=== PATIENT | male | born 1965 | race Caucasian/White ===

== ENCOUNTER 2021-02-27 12:45 | Emergency (ER) | payer MEDICAID, SELFPAY ==
--- NOTE | ~2021-02-27 | XR_ITS ---
EXAMINATION: XR RIBS, RIGHT CLINICAL INFORMATION: Fall. Right rib pain. COMPARISON: Previous chest x-rays most recent March 2018. TECHNIQUE: 3 views of the right ribs were obtained. FINDINGS: Lungs are clear. No consolidation, pneumothorax, or pleural effusion. The cardiomediastinal silhouette and pulmonary vasculature are normal. Osseous structures are unremarkable. Ribs are intact. No fractures are identified. XR/XR ribs RT min 3V w CXR1V IMPRESSION: Unremarkable examination.
[2021-02-27 13:33] VITALS: BP 162/87; PULSE 80; RESP 16; TEMP 36.3; O2SAT 100; BMI 25.1
[2021-02-27 15:36] VITALS: BP 170/90; PULSE 79; RESP 16; TEMP 36.6; O2SAT 99
[2021-02-27] MEDS: oxyCODONE HCl Immed Release 5 MG TABLET PO (16:21)
--- NOTE | 2021-02-27 17:17 | PC.NURSE ---
RESPIRATORY THERAPIST IN TO SUPPLY/TEACH IS
[2021-02-27 17:50] VITALS: BP 176/94; RESP 16; TEMP 36.6; O2SAT 98
--- NOTE | 2021-02-27 17:53 | PC.NURSE ---
ABRASION ON PATIENT BACK WAS CLEAN WITH SALINE ANTIBIOTIC ORNAMENT AND NON STICK DRESSING APPLIED .
--- NOTE | 2021-02-27 17:57 | ED.FALL ---
HPI - Fall General Chief Complaint: Fall Stated Complaint: fall Time Seen by Provider: 02/27/21 15:56 Source: patient Mode of arrival: ambulatory Limitations: language barrier History of Present Illness HPI Narrative: 55-year-old male who fell on a ramp getting out of wheelchair van after dialysis. Patient has right flank abrasion, and right rib pain. No loss of consciousness, he did not hit his head. Patient has bilateral edwen-lop-pysp amputation with prosthesis, walks with a walker. This was clearly a misstep, a mechanical fall, no loss of consciousness, no lightheadedness, no chest pain, no shortness of breath. MD complaint: fall Onset (ago): hour(s) (1) Fall from: other (Getting onto a ramp out of wheelchair van) Fall witnessed: yes, by bystander Place fall occurred: home Loss of consciousness: none Prolonged down time: no Symptoms prior to fall: none Context: tripped/slipped Location of injury: chest and back Related Data Previous Rx's Medication Instructions Recorded oxycodone 5 mg capsule 5 mg PO Q6H PRN 3 Days #12 cap MDD 02/27/21 20 Allergies Allergy/AdvReac Type Severity Reaction Status Date / Time peas [PEAS] Allergy Unknown UNKNOWN Verified 02/27/21 13:38 Penicillins [PENICILLINS] Allergy Unknown RASH Verified 02/27/21 13:38 Review of Systems Constitutional: Constitutional: Denies body ache(s), Denies chills, Denies fatigue, Denies fever(s), Denies headache(s), Denies malaise and Denies weakness Eyes: Eyes: Denies diplopia ENT: Denies vertigo, Denies dizziness, Denies otalgia, Denies headache(s), Denies mouth pain, Denies post nasal drip, Denies sinus pain, Denies sinus pressure, Denies sore throat and Denies throat swelling Cardiovascular: Cardiovascular: Denies chest pain, Denies syncope, Denies leg edema, Denies lightheadedness, Denies Loss of Consciousness, Denies palpitations and Denies dyspnea Respiratory: Respiratory: Denies chest congestion, Denies cough and Denies dyspnea Gastrointestinal: Gastrointestinal: Reports abdominal pain, Denies hematochezia, Denies constipation, Denies diarrhea and Denies vomiting Musculoskeletal: Comments: Right-sided rib pain Neurologic: Denies confusion, Denies vertigo, Denies dizziness, Denies syncope, Denies headache(s) and Denies weakness Psychiatric: Psychiatric: Denies anxiety, Denies confusion and Denies depression Endocrine: Endocrine: Denies fatigue and Denies palpitations Allergic/Immunologic: Allergic/Immunologic: Denies throat swelling PMFSH Past Medical History Medical History CKD (chronic kidney disease) HTN (hypertension) Social History Social History Advance Directives: No Advance Directives Information Provided: No Physical Exam Vital Signs: Vital Signs: Last Vital Signs Temp 97.8 F 02/27/21 17:50 Pulse 79 02/27/21 15:36 Resp 16 02/27/21 17:50 BP 176/94 H 02/27/21 17:50 Pulse Ox 98 02/27/21 17:50 Body Mass Index 25.1 Const: General: No confusion Nutritional Appearance: well nourished Orientation/consciousness: No confusion Limitations: no limitations HENMT: Head: Yes normal to inspection, Yes normocephalic, Yes atraumatic and No abrasion Eyes: Conjunctivae: conjunctivae normal Pupils: Equal, round and reactive pupils present EOM: EOMs intact bilaterally Neck: Neck: Yes full ROM, Yes no lymphadenopathy and Yes supple Chest: Chest palpation & inspection: no crepitus and tenderness rib right paravertebral line involving the 4th rib, involving the 5th rib, involving the 6th rib and involving the 7th rib Resp: Effort & Inspection: normal respiratory effort and able to speak in complete sentences Auscultation: clear to auscultation bilaterally, no crackles, no rales, no rhonchi and no wheezes Cardio: Rate: regular rate Rhythm: regular rhythm Heart sounds: S1 normal heart sound present and S2 normal heart sound present Skin: Other: Abrasion on right thoracic side of back, linear superficial scratch with surrounding abrasion along right midscapular line of back Neuro: General: No confusion Cranial nerves: Yes Equal, round and reactive pupils present Extrem: General: Yes normal to inspection and Yes full ROM Psych: Appearance: grossly normal Affect: normal affect Attitude: cooperative Thought process: Normal thought process present Course Course Course Narrative: 55-year-old male had a mechanical fall getting out of his wheelchair van after dialysis. Patient denies any other symptoms other than rib pain and scratch on his back. Patient provided with incentive spirometer, wound was cleaned and dressed. Patient given short course of oxycodone for pain, counseled to follow-up with primary care provider. X-ray showed; Lungs are clear. No consolidation, pneumothorax, or pleural effusion. The cardiomediastinal silhouette and pulmonary vasculature are normal. Osseous structures are unremarkable. Ribs are intact. No fractures are identified No rib fracture, likely rib contusion. Counseled patient to follow-up with his primary care provider is Discharge Plan Discharge Clinical Impression: Contusion of rib on right side Qualifiers: Encounter type: initial encounter Qualified Code(s): S20.211A - Contusion of right front wall of thorax, initial encounter Abrasion of back wall of thorax Qualifiers: Encounter type: initial encounter Thoracic wall location detail: right Qualified Code(s): S20.411A - Abrasion of right back wall of thorax, initial encounter Patient Disposition: Home, Self-Care Instructions: Abrasion (ED), Rib Contusion (ED) Additional Instructions: Please fill your prescription for pain medicine tomorrow. Please call your primary care tomorrow for follow-up appointment. Please use your incentive spirometer at least twice every hour for the next week. This will keep your lungs from collapsing and keep you from getting an pneumoonia. Tomorrow afternoon, Please take the dressing off of the wounds on your back, wash with soap and water, pat dry, apply bacitracin, and redress your wounds. Do this for 3 more days. If redness, swelling, or warmth or pain appears, return to be seen, these are signs of infection. Please return emergency room for any new or concerning symptoms. Surta antoine receta de analg?sicos ma?bibi. Llame a antoine atenci?n primaria ma?bibi para danielle lexi de seguimiento. Utilice antoine espir?metro de incentivo al menos dos veces por hora renée la pr?xima semana. [place] evitar? que [place] pulmones colapsen y evitar? que usted contraiga danielle neumoon?a. Ma?bibi por la tarde, qu?tese el vendaje de las heridas de la espalda, l?vese con agua y jab?n, s?quese, aplique bacitracina y repase las heridas. Marcie esto por 3 d?as m?s. Si aparece enrojecimiento, hinchaz?n o calor o dolor, vuelva a ser visto, estos son signos de infecci?n. Regrese a la orlando de emergencias por cualquier s?ntoma nuevo o preocupante. Prescriptions: New oxycodone 5 mg capsule 5 mg PO Q6H MDD 20 PRN (Reason: pain) 3 Days Qty: 12 RF: 0 Interventions: ED Discharge Assessment Last Done: 02/27/21 18:31 Discharge Date/Time: 02/27/21 18:35 Print Language: Anguillan
== END 2021-02-27 18:35 | disposition home or self-care (01) ==
PROVIDERS: Emergency Provider Emergency Medicine; PCP Internal Medicine
DX: S20.211A Contusion of right front wall of thorax, initial encounter (principal); S20.411A Abrasion of right back wall of thorax, initial encounter; W10.2XXA Fall (on)(from) incline, initial encounter; I12.0 Hypertensive chronic kidney disease with stage 5 chronic kidney disease or end stage renal disease; N18.6 End stage renal disease; Z99.2 Dependence on renal dialysis; Y93.89 Activity, other specified; Y92.818 Other transport vehicle as the place of occurrence of the external cause; Y99.8 Other external cause status
CPT/HCPCS: 71101; 99283; 99284

== ENCOUNTER 2021-08-08 13:27 | Outpatient (REF) | payer MEDICAID, SELFPAY ==
[2021-08-08 13:49] LABS: MANUAL DIFF FLAG NO
[2021-08-08 14:10] LABS: Basophils Absolute Auto 0.1 X10*3/uL (0.0-0.2); Basophils Percent Auto 1.5 % (0-2); Eosinophils Absolute Auto 0.3 X10*3/uL (0.0-0.4); Hemoglobin 11.3 g/dl (14.0-18.0); Imm Gran Abs Auto 0.01 X10*3/uL (0.00-0.03); Imm Gran Pct Auto 0.2 % (0.0-0.4); Lymphocytes Absolute Auto 0.9 X10*3/uL (1.2-4.9); Lymphocytes Percent Auto 16.2 % (20-40); Mean Corpuscular HGB Conc 32.3 g/dl (31.0-36.0); Mean Corpuscular Hemoglobin 31.6 pg (27.0-33.0); Mean Corpuscular Volume 97.8 fL (80.0-98.0); Mean Platelet Volume 12.1 fL (9.4-12.4); Monocytes Absolute Auto 0.5 X10*3/uL (0.1-1.2); Monocytes Percent Auto 9.6 % (2-11); Neutrophils Absolute Auto 3.7 x10*3/uL (2.0-8.3); Neutrophils Percent Auto 66.5 % (45-73); Platelet Count 167 X10*3/uL (160-400); Red Blood Count 3.58 X10*6/uL (4.60-5.80); Red Cell Distribution Width 12.2 % (11.0-16.0); White Blood Count 5.5 X10*3/uL (4.8-10.8)
[2021-08-08 14:26] LABS: Estimated Average Glucose 108 mg/dL; Hemoglobin A1c % 5.4 %
[2021-08-08 14:52] LABS: Alanine Aminotransferase 27 U/L (0-40); Albumin Level 3.9 g/dL (3.5-5.0); Alkaline Phosphatase 117 U/L (39-117); Anion Gap 15 (12-20); Aspartate Amino Transferase 20 U/L (5-37); Bilirubin Total 0.6 mg/dL (0.0-1.0); Blood Urea Nitrogen 54 mg/dL (9-16); Calcium 8.6 mg/dL (8.4-10.2); Carbon Dioxide 27 mmol/L (22-29); Chloride 103 mmol/L (96-108); Cholesterol 207 mg/dL; Estimated Glomerular Filt Rate 12; Glucose Random 187 mg/dL (60-115); HDL Cholesterol 58 mg/dL; LDL Cholesterol Calculated 131 mg/dl; Potassium 4.2 mmol/L (3.3-5.1); Sodium 141 mmol/L (135-145); Total Protein 7.2 g/dL (6.5-8.0); Triglycerides 93 mg/dL
[2021-08-08 15:36] LABS: Creatinine Urine 63.99 mg/dL
== END 2021-08-08 13:28 | disposition home or self-care (01) ==
LOC: HO.LAB 13:27
PROVIDERS: PCP Internal Medicine; Visit Provider Internal Medicine
DX: E11.29 Type 2 diabetes mellitus with other diabetic kidney complication (principal); I12.0 Hypertensive chronic kidney disease with stage 5 chronic kidney disease or end stage renal disease; E11.22 Type 2 diabetes mellitus with diabetic chronic kidney disease; N18.6 End stage renal disease
CPT/HCPCS: 36415; 80053; 80061; 82043; 83036; 85025

== ENCOUNTER 2022-03-13 21:01 | Emergency (ER) | payer MEDICAID, SELFPAY ==
--- NOTE | ~2022-03-13 | XR_ITS ---
EXAMINATION: XR CHEST CLINICAL INFORMATION: Chest pain COMPARISON: 02/27/2021 TECHNIQUE: Frontal view of the chest was obtained. FINDINGS: No significant abnormality is noted involving the heart, lungs, mediastinum, bony thorax or soft tissues. XR/XR chest 1V IMPRESSION: Unremarkable examination.
--- NOTE | ~2022-03-13 | CT_ITS ---
EXAMINATION: CT ABDOMEN AND PELVIS WITHOUT CONTRAST CLINICAL INFORMATION: Nausea and vomiting. COMPARISON: None TECHNIQUE: Multidetector volumetric imaging was performed from the superior aspect of the liver through the pubic symphysis. Sagittal and coronal reformatted images were obtained on the technologist's workstation. This CT examination was performed using dose optimization techniques as appropriate, variously including the following: *Automated exposure control *Adjustment of mA and/or kV according to patient size (this includes techniques or standardized protocols for targeted exams where dose is matched to indication/reason for exam; i.e. extremities or head) *Use of iterative reconstruction technique DLP: 626 mGy-cm FINDINGS: LUNG BASES: Lung bases normally aerated. No pleural effusion. Heavy volume of coronary artery calcification. LIVER, GALLBLADDER, AND BILIARY TREE: The liver is normal in size, shape, and attenuation. No focal hepatic lesion or biliary ductal dilatation is present. There is hyperdense material layering dependently at the neck of the gallbladder likely gallstones. No edema around the gallbladder. No bile duct dilatation. PANCREAS: Unremarkable. SPLEEN: Unremarkable. ADRENAL GLANDS: Unremarkable. KIDNEYS AND URETERS: The kidneys are normal in size, shape, and attenuation. No hydronephrosis, hydroureter, or calculi seen. No perinephric stranding. BLADDER: Unremarkable. GASTROINTESTINAL TRACT: The small and large bowel are unremarkable. The appendix is unremarkable. ABDOMINAL WALL: No significant hernia is appreciated. LYMPH NODES: Normal. VASCULAR: Vascular calcifications throughout the abdomen or pelvis. There is no aneurysm. PELVIC VISCERA: Unremarkable. OSSEOUS STRUCTURES: Multilevel degenerative spondylosis spine. CT/CT abdomen pelvis wo IV con IMPRESSION: No acute abnormality CT scan abdomen pelvis. Probable cholelithiasis. No acute change of gallbladder wall and no bile duct dilatation. Fleischner guidelines were followed.
[2022-03-13 21:18] VITALS: BP 168/51; BP 168/57; PULSE 63; RESP 18; TEMP 36.9; O2SAT 94; O2SAT 95; BMI 24.9
--- NOTE | 2022-03-13 21:21 | ED.PSYCH ---
HPI - Psych General Chief Complaint: General Medical Stated Complaint: sick person Time Seen by Provider: 03/13/22 21:21 History of Present Illness HPI Narrative: Patient is a 56-year-old male with a history of diabetes history of end-stage renal disease normally gets dialysis on Saturday and Saturday. Presented today with feeling generalized malaise nausea vomiting earlier. Patient from home. He was generally not well. Patient had some nausea earlier. No diarrhea. No abdominal pain. No cough no congestion or upper respiratory symptoms. Immunized for COVID. No chest pain or shortness of breath Related Data Previous Rx's Medication Instructions Recorded oxycodone 5 mg capsule 5 mg PO Q6H PRN pain 3 days #12 02/27/21 caps Allergies Allergy/AdvReac Type Severity Reaction Status Date / Time peas [PEAS] Allergy Unknown UNKNOWN Verified 02/27/21 13:38 Penicillins [PENICILLINS] Allergy Unknown RASH Verified 02/27/21 13:38 PMF Past Medical History Medical History CKD (chronic kidney disease) HTN (hypertension) Physical Exam Vital Signs: Vital Signs: Last Vital Signs Temp 98.4 F 03/13/22 21:18 Pulse 63 03/13/22 21:18 Resp 18 03/13/22 21:18 BP 168/51 H 03/13/22 21:18 Pulse Ox 95 03/13/22 21:18 O2 Del Method 03/13/22 21:18 BMI result Body Mass Index 24.9 Discharge Plan Discharge Prescriptions: No Action oxycodone 5 mg capsule 5 mg PO Q6H MDD 20 PRN (Reason: pain) 3 Days Qty: 12 0RF
--- NOTE | 2022-03-13 21:38 | ECG_ITS ---
Test Reason : WEAKNESS Blood Pressure : / mmHG Vent. Rate : 065 BPM Atrial Rate : 065 BPM P-R Int : 246 ms QRS Dur : 180 ms QT Int : 500 ms P-R-T Axes : 055 -50 -16 degrees QTc Int : 520 ms Sinus rhythm with 1st degree A-V block Right bundle branch block Left anterior fascicular block Bifascicular block Abnormal ECG When compared with ECG of 18-FEB-2018 05:29, Vent. rate has decreased BY 40 BPM T wave inversion now evident in Inferior leads Referred By: Saniya Thomas Electronically Signed By:NERI MOCK
--- NOTE | 2022-03-13 21:53 | ED.GENADULT ---
HPI - General Adult General Chief complaint: General Medical Stated complaint: sick person Time Seen by Provider: 03/13/22 21:21 History of Present Illness HPI narrative: Patient is a 56-year-old male with a long history of diabetes. Presented today with having nausea vomiting. Baseline has a history of end-stage renal disease. Patient received dialysis Saturday and Saturday. He did go to dialysis yesterday. No change in bowel movement. Making less urine than normal. Patient from home. Positive coughing upper respiratory symptoms. He is vaccinated for COVID. There is no abdominal pain is no abdominal surgery in the past. Related Data Previous Rx's Medication Instructions Recorded oxycodone 5 mg capsule 5 mg PO Q6H PRN pain 3 days #12 02/27/21 caps Allergies Allergy/AdvReac Type Severity Reaction Status Date / Time peas [PEAS] Allergy Unknown UNKNOWN Verified 02/27/21 13:38 Penicillins [PENICILLINS] Allergy Unknown RASH Verified 02/27/21 13:38 Review of Systems Review of Systems: Positive nausea vomiting Yes all other systems are reviewed and are negative [facility] Past Medical History Attestation statement: The following information was validated with the patient. Medical History CKD (chronic kidney disease) HTN (hypertension) Social History Social History Advance Directives: No Advance Directives Information Provided: No Physical Exam ED Vital Signs: Vital Signs - 24 hr 03/13/22 21:18 03/13/22 23:31 Temperature 98.4 F 98.4 F Pulse Rate 63 81 Respiratory Rate 18 17 Blood Pressure 168/51 H 180/70 H Pulse Oximetry 95 95 Oxygen Delivery Method Room Air Room Air BMI result Body Mass Index 24.9 Appearance: Alert. Oriented X3. No acute distress. Eyes: Pupils equal, round and reactive to light. ENT: Pharynx normal. Neck: Normal inspection. Neck supple. No lymph nodes noted. No crepitus CVS: Normal heart rate and rhythm. Pulses normal. Normal S1 and S2 Respiratory: No respiratory distress. Breath sounds normal. No Wheezing. No rales Abdomen: Soft and nontender. No rigidity. No distention. good BS x4 Skin: Skin warm and dry. Normal skin color. Normal skin turgor. Extremities: No lower extremity edema. Neurovascular intact to all extremities. No Lacerations. No Rash Neuro: Oriented X 3. No motor deficit. No sensory deficit. Moving all extermities. No slurred speech Medical Decision Making MDM Narrative Medical decision making narrative: Question gastroparesis. Patient CT scan of the abdomen showed no obstruction no abscess. Labs are consistent with end-stage renal disease. Patient did not miss dialysis. Potassium was 3.7. Will discharge patient home. Hemoglobin is baseline. Lab Data Result diagrams: 03/13/22 21:52 03/13/22 23:50 Labs: Lab Results 03/13/22 03/13/22 03/13/22 Range/Units 21:52 21:52 23:50 WBC 5.4 (4.8-10.8) X10*3/uL RBC 3.18 L (4.60-5.80) X10*6/uL Hgb 9.7 L (14.0-18.0) g/dl Hct 28.9 L (42.0-52.0) % MCV 90.9 (80.0-98.0) fL MCH 30.5 (27.0-33.0) pg MCHC 33.6 (31.0-36.0) g/dl RDW 13.2 (11.0-16.0) % Plt Count 162 (160-400) X10*3/uL MPV 11.7 (9.4-12.4) fL Immature Gran % (Auto) 0.2 (0.0-0.4) % Neut % (Auto) 65.3 (45-73) % Lymph % (Auto) 15.2 L (20-40) % Coles % (Auto) 11.9 H (2-11) % Eos % (Auto) 5.9 H (0-4) % Baso % (Auto) 1.5 (0-2) % Lymph # (Auto) 0.8 L (1.2-4.9) X10*3/uL Coles # (Auto) 0.6 (0.1-1.2) X10*3/uL Eos # (Auto) 0.3 (0.0-0.4) X10*3/uL Baso # (Auto) 0.1 (0.0-0.2) X10*3/uL Abs Immat Gran (auto) 0.01 (0.00-0.03) X10*3/uL Absolute Neuts (auto) 3.5 (2.0-8.3) x10*3/uL Absolute Nucleated RBC 0.000 (0.0-0.012) X10*3/uL Nucleated RBC % (auto) 0.0 (0.0-0.2) /100WBC Sodium 139 (135-145) mmol/L Potassium 3.7 (3.3-5.1) mmol/L Chloride 96 (96-108) mmol/L Carbon Dioxide 27 (22-29) mmol/L Anion Gap 20 (12-20) BUN 62 H (9-16) mg/dL Creatinine 6.66 H* (0.5-1.4) mg/dL Estim Creat Clear Calc 12.8 Estimated GFR 9 Random Glucose 116 H D (60-115) mg/dL Calcium 7.9 L D (8.4-10.2) mg/dL Magnesium 2.5 (1.6-2.6) mg/dL Total Bilirubin 0.7 (0.0-1.0) mg/dL Direct Bilirubin 0.2 (0.0-0.5) mg/dL AST 19 (5-37) U/L ALT 26 (0-40) U/L Alkaline Phosphatase 105 (39-117) U/L Total Protein 6.8 (6.5-8.0) g/dL Albumin 3.7 (3.5-5.0) g/dL Lipase 41 (8-78) U/L COVID-19 (TERRIE) Negative (Negative) COVID-19 Clin Com See Note Discharge Plan Discharge Clinical Impression: Diabetic gastroparesis Patient Disposition: Home, Self-Care Instructions: Diabetic Gastroparesis (DC) Prescriptions: No Action oxycodone 5 mg capsule 5 mg PO Q6H MDD 20 PRN (Reason: pain) 3 Days Qty: 12 0RF Referrals: Physician,Unknown J [Primary Care Provider] - 03/16/22 Print Language: Syrian
[2022-03-13 22:03] LABS: MANUAL DIFF FLAG NO
[2022-03-13 22:06] LABS: Basophils Absolute Auto 0.1 X10*3/uL (0.0-0.2); Basophils Percent Auto 1.5 % (0-2); Eosinophils Absolute Auto 0.3 X10*3/uL (0.0-0.4); Eosinophils Percent Auto 5.9 % (0-4); Hematocrit 28.9 % (42.0-52.0); Hemoglobin 9.7 g/dl (14.0-18.0); Imm Gran Abs Auto 0.01 X10*3/uL (0.00-0.03); Imm Gran Pct Auto 0.2 % (0.0-0.4); Lymphocytes Absolute Auto 0.8 X10*3/uL (1.2-4.9); Lymphocytes Percent Auto 15.2 % (20-40); Mean Corpuscular HGB Conc 33.6 g/dl (31.0-36.0); Mean Corpuscular Hemoglobin 30.5 pg (27.0-33.0); Mean Corpuscular Volume 90.9 fL (80.0-98.0); Mean Platelet Volume 11.7 fL (9.4-12.4); Monocytes Absolute Auto 0.6 X10*3/uL (0.1-1.2); Monocytes Percent Auto 11.9 % (2-11); Neutrophils Absolute Auto 3.5 x10*3/uL (2.0-8.3); Neutrophils Percent Auto 65.3 % (45-73); Platelet Count 162 X10*3/uL (160-400); Red Blood Count 3.18 X10*6/uL (4.60-5.80); Red Cell Distribution Width 13.2 % (11.0-16.0); White Blood Count 5.4 X10*3/uL (4.8-10.8)
[2022-03-13 22:32] LABS: COVID-19 Test Negative (Negative)
[2022-03-13] MEDS: Metoclopramide HCl 10 MG/2 ML VIAL IVPUSH (22:50)
[2022-03-13 23:31] VITALS: BP 180/70; PULSE 81; RESP 17; TEMP 36.9; O2SAT 95
[2022-03-14 00:23] LABS: Alanine Aminotransferase 26 U/L (0-40); Albumin Level 3.7 g/dL (3.5-5.0); Alkaline Phosphatase 105 U/L (39-117); Anion Gap 20 (12-20); Aspartate Amino Transferase 19 U/L (5-37); Bilirubin Direct 0.2 mg/dL (0.0-0.5); Bilirubin Total 0.7 mg/dL (0.0-1.0); Blood Urea Nitrogen 62 mg/dL (9-16); Calcium 7.9 mg/dL (8.4-10.2); Carbon Dioxide 27 mmol/L (22-29); Chloride 96 mmol/L (96-108); Creatinine Clr Calc Pharmacy 12.8; Estimated Glomerular Filt Rate 9; Glucose Random 116 mg/dL (60-115); Lipase 41 U/L (8-78); Magnesium 2.5 mg/dL (1.6-2.6); Potassium 3.7 mmol/L (3.3-5.1); Sodium 139 mmol/L (135-145); Total Protein 6.8 g/dL (6.5-8.0)
--- NOTE | 2022-03-14 01:00 | PC.NURSE ---
call out to [facility] @[id number] spoke to Macy who informed me there are no trucks available for transport. Macy requested that I call back in the morning to give demographics
== END 2022-03-14 02:28 | disposition home or self-care (01) ==
PROVIDERS: Emergency Provider Emergency Medicine Emergency Medical Services
DX: E11.43 Type 2 diabetes mellitus with diabetic autonomic (poly)neuropathy (principal); K31.84 Gastroparesis; R11.2 Nausea with vomiting, unspecified; E11.22 Type 2 diabetes mellitus with diabetic chronic kidney disease; I12.0 Hypertensive chronic kidney disease with stage 5 chronic kidney disease or end stage renal disease; N18.6 End stage renal disease; Z99.2 Dependence on renal dialysis; Z20.822 Contact with and (suspected) exposure to COVID-19
CPT/HCPCS: 36415; 51798; 71045; 74176; 80048; 80076; 83690; 83735; 85025; 87635; 93005; 96374; 99283; 99284; J2765